=== PATIENT | female | born 1995 | race Caucasian/White ===

== ENCOUNTER 2019-03-27 03:09 | Emergency (ER) | payer OTHER ==
[~2019-03-27] VITALS: Ht 160 cm; Wt 63.6 kg
[2019-03-27 06:21] VITALS: BP 128/78
--- NOTE | 2019-03-27 11:23 | ECGEPIP ---
[facility] - ED Test Date: 2019-03-27 Pat Name: FRANK HANKS Department: Room: - Gender: Female Database Analyst: GLENDA : 1995 Requested By: MARCELO ALLEN Order Number: [id number] Reading MD: Janneth Nash Measurements Intervals Slick Rate: 71 P: 52 TN: 149 QRS: 73 QRSD: 85 T: 52 QT: 380 QTc: 415 Interpretive Statements SINUS RHYTHM No prior Electronically Signed on 03-27-2019 11:23:06 EDT by Janneth Nash
== END 2019-03-27 06:22 | disposition home or self-care (01) ==
LOC: M ED 03:09
DX: F41.1 Generalized anxiety disorder (principal); F17.200 Nicotine dependence, unspecified, uncomplicated